=== PATIENT | female | born 1970 | race African-American/Black ===

== ENCOUNTER 2017-05-31 11:50 | Emergency (ER) | payer OTHER ==
[~2017-05-31] VITALS: Ht 154.9 cm; Wt 57.0 kg
[~2017-05-31 11:50] MED LIST: AMLO-147 PO; AMLODIPINE; LISI20TA11 PO; LISINOPRIL; METO-429 PO; METOPROLOL TARTRATE
[2017-05-31 11:54] VITALS: Ht 154.9 cm; Wt 57.0 kg
[2017-05-31] MEDS ORDERED: METO-429 PO (12:14)
[2017-05-31] MEDS ORDERED: CYPR4TAB PO (12:17)
[2017-05-31] MEDS ORDERED: AMLO-147 PO (12:18)
[2017-05-31] MEDS ORDERED: LISI20TA11 PO (12:18)
--- NOTE | 2017-05-31 12:30 | ERD ---
ER Documentation Chief Complaint Date/Time DATE: 05/31/17 TIME: 12:28 Chief Complaint refill on blood pressure medication HPI This is a 47-year-old female presents to the ER for medication refill. Patient has a past medical history of hypertension has been taking her medications since 2003. Patient denies any chest pain or shortness of breath. She is completely asymptomatic, however cannot get in contact with her primary care doctor to get her medications. ROS 12 point review of systems was done, all negative except per HPI. Medications Home Meds Active Scripts Lisinopril* (Lisinopril*) 20 Mg Tablet, 20 MG PO DAILY, #30 TAB 3 Refills Prov:CELESTINO ALEXIS 05/31/17 Amlodipine Besylate* (Amlodipine Besylate*) 10 Mg Tablet, 10 MG PO DAILY, #30 TAB 3 Refills Prov:CELESTINO ALEXIS 05/31/17 Cyproheptadine Hcl* (Cyproheptadine Hcl*) 4 Mg Tablet, 4 MG PO QHS, #30 TAB 3 Refills Prov:CELESTINO ALEXIS 05/31/17 Metoprolol Tartrate* (Lopressor*) 50 Mg Tab, 50 MG PO QHS, #30 TAB 3 Refills Prov:CELESTINO ALEXIS 05/31/17 Lisinopril* (Lisinopril*) 20 Mg Tablet, 20 MG PO DAILY, #30 TAB Prov:TONY DIXONC 03/04/17 Amlodipine Besylate* (Amlodipine Besylate*) 10 Mg Tablet, 10 MG PO DAILY, #30 TAB Prov:TONY DIXONC 03/04/17 Metoprolol Tartrate* (Lopressor*) 50 Mg Tab, 50 MG PO DAILY, #30 TAB Prov:TONY DIXON-C 03/04/17 Reported Medications [norvasc,lisinopril,lopressor] No Conflict Check 07/06/13 Allergies Allergies: Coded Allergies: No Known Allergy (Unverified , 08/15/14) PMhx/Soc Hx Alcohol Use: No Hx Substance Use: No Hx Tobacco Use: Yes Smoking Status: Current every day smoker Physical Exam Vitals Vital Signs Date Time Temp Pulse Resp B/P Pulse Ox O2 Delivery O2 Flow Rate FiO2 05/31/17 11:54 98.0 100 18 149/89 99 Physical Exam GENERAL: The patient is well developed and appropriate for usual state of health , in no apparent distress. HEENT: Atraumatic. CHEST: Clear to auscultation bilaterally. There are no rales, wheezes or rhonchi. HEART: Regular rate and rhythm. No murmurs, clicks, rubs or gallops. NEURO: Alert and oriented. SKIN: The skin is warm and dry. Procedures/MDM This is a 47-year-old female presents to the ER for medication refill. Patient was given her medication, and was advised to follow-up with her primary care doctor. Patient was completely asymptomatic in the ER. Her blood pressure was slightly elevated to 149/89, however she does not have hypertensive emergency or urgency. Patient follow-up with her primary care doctor within 1-2 days return to ER sooner if symptoms worsen. My medical decision making shared with the patient she understands and agrees with plan. Departure Diagnosis: Primary Impression: Encounter for medication refill Condition: Stable Patient Instructions: Taking Medicine Safely Additional Instructions: Call your primary care doctor TOMORROW for an appointment during the next 1-2 days.See the doctor sooner or return here if your condition worsens before your appointment time. CELESTINO ALEXIS May 31, 2017 12:30
== END 2017-05-31 12:28 | disposition home or self-care (01) ==
LOC: FTE 11:50
DX: Z76.0 Encounter for issue of repeat prescription (principal); I10 Essential (primary) hypertension; F17.210 Nicotine dependence, cigarettes, uncomplicated
CPT/HCPCS: 99281